=== PATIENT | female | born 1980 | race Caucasian/White ===

== ENCOUNTER 2022-08-03 11:38 | Oncology outpatient (recurring) (ONCR) | payer BC, SELFPAY ==
--- NOTE | 2022-07-26 15:12 | N.ONRAD NP_ITS ---
Radiation Oncology Consultation Patient Name: Jake Amos Date of : 1980 Date of Service: 07/26/2022 Attending Physician: Morales Linda M.D. Jake Amos was seen in consultation this afternoon at the request of Luis Beth M.D. for consideration of adjuvant breast radiotherapy in the management of a recently diagnosed breast cancer. A screening mammogram (independently reviewed in [facility]) obtained on April 14, 2022 identified an 8 mm asymmetry within the left breast at the 12 o'clock position. The left diagnostic mammogram with tomosynthesis completed on May 19, 2022 confirmed a persistent mass in the left breast at the 12 o'clock position. Ultrasonography demonstrated a hypoechoic mass measuring 2.1 cm x 1 cm x 1.4 cm at the 12 o'clock position that was 8 cm from the nipple. There were no abnormal left axillary lymph nodes. An ultrasound-guided left breast needle biopsy completed on May 27, 2022 diagnosed an invasive grade I ductal carcinoma. The Breast Cancer Prognostic Profile reported estrogen receptor positivity (95%), progesterone receptor positivity (75%) and HER2 negativity (1+). Ki???67 was less than 10 %. A MammaPrint Breast Cancer Recurrence Assay reported low-risk and luminal-type. An MRI of the breasts obtained on June 02, 2022 described a biopsy-proven malignancy in the left breast measuring 1.2 cm x 0.8 cm x 1.1 cm and an additional 2 mm ovoid focus of enhancement that was 1.3 cm anterior to the biopsied mass. A needle-localized left breast lumpectomy with sentinel lymph node biopsy and BioZorb placement was performed on June 28, 2022 by Luis Beth M.D. at [facility] in [place], [place]. The pathology report (from the outside hospital and personally reviewed in [facility]) reported a 9 mm grade 1 invasive ductal carcinoma with tubular features. All surgical margins were negative for malignancy. A total of 1 sentinel lymph node was harvested without metastasis noted. The patient was evaluated for adjuvant left breast radiotherapy. I discussed The [place] [employer] on Cancer Staging for breast cancer and specifically the patient's pathological stage IA (T1bN0) corresponding to her disease and The National Comprehensive Cancer Network Guidelines recommending adjuvant radiotherapy. I also reviewed the classic study by NSABP comparing mastectomy, lumpectomy, and lumpectomy with radiotherapy and the Early Breast Cancer Trialist Collaborative Group meta-analysis. She is aware that the addition of radiotherapy to lumpectomy provides improvement in local control and overall survival. I anticipate a 3 week course of hypofractionated radiotherapy preliminarily to a surgical bed boost as per DAVID Guidelines. A computed tomographic radiotherapy planning scan in the treatment position will be acquired to identify the clinical target volumes. The potential toxicities of breast radiotherapy were reviewed. The patient has verbalized understanding would like to proceed as recommended. The patient's medical treatment plan was discussed with Luis Beth M.D. Signed by: Morales Linda 07/26/2022 3:10:11 PM
--- NOTE | 2022-08-03 | CT_ITS ---
Radiation Therapy Planning CT images; total exam DLP: 545.28 mGy-cm MTDD
== END 2022-08-06 23:59 | disposition home or self-care (01) ==
PROVIDERS: PCP Nurse Practitioner Family; Visit Provider Radiology Radiation Oncology
DX: C50.812 Malignant neoplasm of overlapping sites of left female breast (principal); Z17.0 Estrogen receptor positive status [ER+]; Z51.0 Encounter for antineoplastic radiation therapy
CPT/HCPCS: 77280; 77295; 77300; 77332; 77334; 99205

== ENCOUNTER 2022-09-03 08:37 | Oncology outpatient (recurring) (ONCR) | payer BC, SELFPAY ==
--- NOTE | 2022-08-10 14:09 | ONCRAD TMN_ITS ---
Radiation Oncology Treatment Management Note Patient Name: Jake Amos Date of : 1980 Date of Service: 08/10/2022 Attending Physician: Morales Linda M.D. Jake Amos is a 42 year- old white female diagnosed with a pathological stage IA (T1bN0) breast cancer. A screening mammogram obtained on April 14, 2022 identified an 8 mm asymmetry within the left breast at the 12 o'clock position. The left diagnostic mammogram with tomosynthesis completed on May 19, 2022 confirmed a persistent mass in the left breast at the 12 o'clock position. Ultrasonography demonstrated a hypoechoic mass measuring 2.1 cm x 1 cm x 1.4 cm at the 12 o'clock position that was 8 cm from the nipple. There were no abnormal left axillary lymph nodes. An ultrasound-guided left breast needle biopsy completed on May 27, 2022 diagnosed an invasive grade I ductal carcinoma. The Breast Cancer Prognostic Profile reported estrogen receptor positivity (95%), progesterone receptor positivity (75%) and HER2 negativity (1+). Ki???67 was less than 10 %. A MammaPrint Breast Cancer Recurrence Assay reported low-risk and luminal-type. An MRI of the breasts obtained on June 02, 2022 described a biopsy-proven malignancy in the left breast measuring 1.2 cm x 0.8 cm x 1.1 cm and an additional 2 mm ovoid focus of enhancement that was 1.3 cm anterior to the biopsied mass. A needle-localized left breast lumpectomy with sentinel lymph node biopsy and BioZorb placement was performed on June 28, 2022 by Luis Beth M.D. at [facility] in [place], [place]. The pathology report reported a 9 mm grade 1 invasive ductal carcinoma with tubular features. All surgical margins were negative for malignancy. A total of 1 sentinel lymph node was harvested without metastasis noted. She has received 5.3 Gy of a prescribed 40 Gy delivered in the prone disposition with a 3D conformal radiotherapy plan utilizing opposed tangential portal maciel with a [id number]-[id number] treatment technique. An additional 10 Gy in 5 fractions will be administered to the surgical bed at the conclusion of the whole breast treatment in accordance to DAVID Guidelines. Upon review of systems, she denied any breast complaints to radiotherapy. On physical examination, the patient weighed 140 lbs. Her temperature was 97.3 ???F and the blood pressure was 109/70 mmHg. Her pulse was 75 bpm and the respiratory rate was 16. There was no erythema within the treatment maciel of the left breast. Continue left breast radiotherapy as prescribed. Signed by: Morales Linda 08/10/2022 2:07:59 PM
--- NOTE | 2022-08-16 09:19 | ONCRAD TMN_ITS ---
Radiation Oncology Treatment Management Note Patient Name: Jake Amos Date of : 1980 Date of Service: 08/16/2022 Attending Physician: Morales Linda M.D. Jake Amos is a 42 year- old white female diagnosed with a pathological stage IA (T1bN0) breast cancer. A screening mammogram obtained on April 14, 2022 identified an 8 mm asymmetry within the left breast at the 12 o'clock position. The left diagnostic mammogram with tomosynthesis completed on May 19, 2022 confirmed a persistent mass in the left breast at the 12 o'clock position. Ultrasonography demonstrated a hypoechoic mass measuring 2.1 cm x 1 cm x 1.4 cm at the 12 o'clock position that was 8 cm from the nipple. There were no abnormal left axillary lymph nodes. An ultrasound-guided left breast needle biopsy completed on May 27, 2022 diagnosed an invasive grade I ductal carcinoma. The Breast Cancer Prognostic Profile reported estrogen receptor positivity (95%), progesterone receptor positivity (75%) and HER2 negativity (1+). Ki???67 was less than 10 %. A MammaPrint Breast Cancer Recurrence Assay reported low-risk and luminal-type. An MRI of the breasts obtained on June 02, 2022 described a biopsy-proven malignancy in the left breast measuring 1.2 cm x 0.8 cm x 1.1 cm and an additional 2 mm ovoid focus of enhancement that was 1.3 cm anterior to the biopsied mass. A needle-localized left breast lumpectomy with sentinel lymph node biopsy and BioZorb placement was performed on June 28, 2022 by Luis Beth M.D. at [facility] in [place], [place]. The pathology report reported a 9 mm grade 1 invasive ductal carcinoma with tubular features. All surgical margins were negative for malignancy. A total of 1 sentinel lymph node was harvested without metastasis noted. She has received 16 Gy of a prescribed 40 Gy delivered in the prone disposition with a 3D conformal radiotherapy plan utilizing opposed tangential portal maciel with a [id number]-[id number]-[id number] treatment technique. An additional 10 Gy in 5 fractions will be administered to the surgical bed at the conclusion of the whole breast treatment in accordance to DAVID Guidelines. Upon review of systems, she described sensitivity of the left areola. On physical examination, the patient weighed 138 lbs. Her temperature was 97.2 ???F and the blood pressure was 101/58 mmHg. Her pulse was 74 bpm and the respiratory rate was 16. There was no erythema within the treatment maciel of the left breast. Continue left breast radiotherapy as planned. Signed by: Morales Linda 08/16/2022 9:17:34 AM
--- NOTE | 2022-08-23 09:04 | ONCRAD TMN_ITS ---
Radiation Oncology Treatment Management Note Patient Name: Jake Amos Date of : 1980 Date of Service: 08/23/2022 Attending Physician: Morales Linda M.D. Jake Amos is a 42 year- old white female diagnosed with a pathological stage IA (T1bN0) breast cancer. A screening mammogram obtained on April 14, 2022 identified an 8 mm asymmetry within the left breast at the 12 o'clock position. The left diagnostic mammogram with tomosynthesis completed on May 19, 2022 confirmed a persistent mass in the left breast at the 12 o'clock position. Ultrasonography demonstrated a hypoechoic mass measuring 2.1 cm x 1 cm x 1.4 cm at the 12 o'clock position that was 8 cm from the nipple. There were no abnormal left axillary lymph nodes. An ultrasound-guided left breast needle biopsy completed on May 27, 2022 diagnosed an invasive grade I ductal carcinoma. The Breast Cancer Prognostic Profile reported estrogen receptor positivity (95%), progesterone receptor positivity (75%) and HER2 negativity (1+). Ki???67 was less than 10 %. A MammaPrint Breast Cancer Recurrence Assay reported low-risk and luminal-type. An MRI of the breasts obtained on June 02, 2022 described a biopsy-proven malignancy in the left breast measuring 1.2 cm x 0.8 cm x 1.1 cm and an additional 2 mm ovoid focus of enhancement that was 1.3 cm anterior to the biopsied mass. A needle-localized left breast lumpectomy with sentinel lymph node biopsy and BioZorb placement was performed on June 28, 2022 by Luis Beth M.D. at [facility] in [place], [place]. The pathology report reported a 9 mm grade 1 invasive ductal carcinoma with tubular features. All surgical margins were negative for malignancy. A total of 1 sentinel lymph node was harvested without metastasis noted. She has received 29.3 Gy of a prescribed 40 Gy delivered in the prone disposition with a 3D conformal radiotherapy plan utilizing opposed tangential portal maciel with a zsmby-mw-joani treatment technique. An additional 10 Gy in 5 fractions will be administered to the surgical bed at the conclusion of the whole breast treatment in accordance to DAVID Guidelines. Upon review of systems, she did not report any new complaints. On physical examination, the patient weighed 137 lbs. Her temperature was 97.5 ???F and the blood pressure was 109/68 mmHg. Her pulse was 81 bpm and the respiratory rate was 16. There was no minimal erythema within the treatment maciel of the left breast. Continue left breast radiotherapy as prescribed. Signed by: Morales Linda 08/23/2022 9:02:57 AM
--- NOTE | 2022-08-30 09:41 | ONCRAD TMN_ITS ---
Radiation Oncology Treatment Management Note Patient Name: Jake Amos Date of : 1980 Date of Service: 08/30/2022 Attending Physician: Morales Linda M.D. Jake Amos is a 42 year- old white female diagnosed with a pathological stage IA (T1bN0) breast cancer. A screening mammogram obtained on April 14, 2022 identified an 8 mm asymmetry within the left breast at the 12 o'clock position. The left diagnostic mammogram with tomosynthesis completed on May 19, 2022 confirmed a persistent mass in the left breast at the 12 o'clock position. Ultrasonography demonstrated a hypoechoic mass measuring 2.1 cm x 1 cm x 1.4 cm at the 12 o'clock position that was 8 cm from the nipple. There were no abnormal left axillary lymph nodes. An ultrasound-guided left breast needle biopsy completed on May 27, 2022 diagnosed an invasive grade I ductal carcinoma. The Breast Cancer Prognostic Profile reported estrogen receptor positivity (95%), progesterone receptor positivity (75%) and HER2 negativity (1+). Ki???67 was less than 10 %. A MammaPrint Breast Cancer Recurrence Assay reported low-risk and luminal-type. An MRI of the breasts obtained on June 02, 2022 described a biopsy-proven malignancy in the left breast measuring 1.2 cm x 0.8 cm x 1.1 cm and an additional 2 mm ovoid focus of enhancement that was 1.3 cm anterior to the biopsied mass. A needle-localized left breast lumpectomy with sentinel lymph node biopsy and BioZorb placement was performed on June 28, 2022 by Luis Beth M.D. at [facility] in [place], [place]. The pathology report reported a 9 mm grade 1 invasive ductal carcinoma with tubular features. All surgical margins were negative for malignancy. A total of 1 sentinel lymph node was harvested without metastasis noted. She has received 42 Gy of a prescribed 50 Gy delivered in the prone disposition with a 3D conformal radiotherapy plan utilizing opposed tangential portal maciel with a [id number]-[id number] treatment technique. Upon review of systems, she did not report any new breast complaints. On physical examination, the patient weighed 137 lbs. Her temperature was 97.5 ???F and the blood pressure was 113/73 mmHg. Her pulse was 71 bpm and the respiratory rate was 16. There was a grade I erythema within the treatment maciel of the left breast. Continue left breast radiotherapy as planned. Signed by: Morales Linda 08/30/2022 9:39:58 AM
--- NOTE | 2022-09-03 08:42 | N.ONRD TS_ITS ---
Radiation OncologyTreatment Summary Patient Name: Jake Amos Date of : 1980 Date of Service: 09/03/2022 Attending Physician: Morales Linda M.D. Jake Amos has completed adjuvant breast radiotherapy for the management of a pathological stage IA (T1bN0) breast cancer. A screening mammogram obtained on April 14, 2022 identified an 8 mm asymmetry within the left breast at the 12 o'clock position. The left diagnostic mammogram with tomosynthesis completed on May 19, 2022 confirmed a persistent mass in the left breast at the 12 o'clock position. Ultrasonography demonstrated a hypoechoic mass measuring 2.1 cm x 1 cm x 1.4 cm at the 12 o'clock position that was 8 cm from the nipple. There were no abnormal left axillary lymph nodes. An ultrasound-guided left breast needle biopsy completed on May 27, 2022 diagnosed an invasive grade I ductal carcinoma. The Breast Cancer Prognostic Profile reported estrogen receptor positivity (95%), progesterone receptor positivity (75%) and HER2 negativity (1+). Ki???67 was less than 10 %. A MammaPrint Breast Cancer Recurrence Assay reported low-risk and luminal-type. An MRI of the breasts obtained on June 02, 2022 described a biopsy-proven malignancy in the left breast measuring 1.2 cm x 0.8 cm x 1.1 cm and an additional 2 mm ovoid focus of enhancement that was 1.3 cm anterior to the biopsied mass. A needle-localized left breast lumpectomy with sentinel lymph node biopsy and BioZorb placement was performed on June 28, 2022 by Luis Beth M.D. at [facility] in [place], [place]. The pathology report reported a 9 mm grade 1 invasive ductal carcinoma with tubular features. All surgical margins were negative for malignancy. A total of 1 sentinel lymph node was harvested without metastasis noted. Daily radiotherapy was administered between the dates of August 09, 2022 through September 03, 2022. A prescribed dose of 50 Gy was delivered in 20 fractions encompassing 26 elapsed days. The left breast was treated in the prone position with a 3-dimensional conformal radiotherapy plan applying an opposed tangential portal field design utilizing a smdig-sk-bemes treatment technique. The medial tangential field utilized a 125??? gantry angle with a collimator angle of 13.5???. The field size measured 7 cm x 7 cm within the X-direction and 7 cm x 9.7 cm within the Y-direction. The SSD measured 95.6 cm with the field delivering 111 monitor units. An energy of 6 MV was prescribed. A supplemental medial tangential port with multi-leaf collimation was designed that administered 16 monitor units. The lateral tangential field employed a gantry angle of 306??? with a collimator angle of 347???. The field size measured 6.8 cm x 6.7 cm within X-direction and 7.7 cm x 10.4 cm within the Y-direction. The measured SSD was 94.8 cm with the field allocating 140 monitor units. A photon energy of 15 MV was prescribed. An auxiliary lateral tangential port with MLC was designed that apportioned 12 monitor units. The initial maciel commenced on August 09, 2021 and continued through August 27, 2021. A prescribed dose of 40 Gy was delivered in 15 fractions over 19 elapsed days. The surgical bed was then treated with three ports. The medial tangential port utilized a gantry angle 125??? with an associated collimator angle of 0???. The field size measured 4.5 cm x 4.4 cm within the X-direction and 4.2 cm x 4.2 cm within the Y-direction. The measured SSD was 96 cm with the port delivering 71 monitor units. A photon energy of 6 MV was prescribed. The lateral tangential port employed a gantry angle of 290??? with an associated collimator angle of 0???. The port size measured 4.5 cm x 4.5 cm within the X-direction and 4.2 cm x 4.2 cm within the Y-direction. The SSD measured was 95.2 cm with the port allocating 73 monitor units. Low energy photons were delivered. An additional field was incorporated with a 290??? gantry angle and a collimator angle of 0???. The field size spanned 5 cm x 4.7 cm within the X-direction and 4.2 cm x 4.2 cm within the Y-direction. The SSD was 96.7 cm with the field distributing 69 monitor units. An energy of 6 MV was specified. The reduced ports began on August 30, 2022 and concluded September 03, 2022. An additional 10 Gy was allocated in 5 fractions over 5 elapsed days. All treatments were performed with the Breezeplay linear accelerator and an isocentric technique. The dose was calculated by Anisotropic Analytic Algorithm. The plan was normalized to deliver 95% of the prescription dose to 95% of the planning target volume. Signed by: Morales Linda 09/03/2022 8:41:44 AM
== END 2022-09-03 12:03 | disposition home or self-care (01) ==
PROVIDERS: PCP Nurse Practitioner Family; Visit Provider Radiology Radiation Oncology
DX: C50.812 Malignant neoplasm of overlapping sites of left female breast; Z17.0 Estrogen receptor positive status [ER+]; Z79.899 Other long term (current) drug therapy
CPT/HCPCS: 77307; 77334; 77336; 77387; 77412; 99213

== ENCOUNTER 2022-09-30 13:54 | Oncology outpatient (recurring) (ONCR) | payer BC, SELFPAY ==
--- NOTE | 2022-09-30 14:49 | ONCRAD EPV_ITS ---
Radiation Oncology Established Patient Visit Patient: Dandre Joseph [id number] : 1980> Age: 42> Sex: Female> Dictated by: Kendell Kelley Date of Service: 09/30/2022 Referring Physician(s) : Diagnosis: C50.412 - Malignant neoplasm of upper-outer quadrant of left female breast, Diagnosed 05/27/2022 (Active) Stage IA, T1b, pN0, M0, G1, HER2 Neg, ER Pos, MS Pos Radiotherapy to Date: Course: Breast 2022, Treatment Site: Breast - Phase II, Ref. ID: [id number], , Energy: 6X, Dose/Fx (cGy): 200, #Fx: 5 / 5, Dose Correction (cGy): 0, Total Dose (cGy): 1,000, Start Date: ,, End Date: 09/03/2022, Elapsed Days: 4 Treatment Site: Breast Ca ??? Lt, Ref. ID: [id number], Energy: 15X/6X, Dose/Fx (cGy): 266.7, #Fx: 15 / 15, Dose Correction (cGy): 0, Total Dose (cGy): 4,000, Start Date: 08/09/2022, End Date: 08/27/2022, Elapsed , days: 18 Current History: Doing well. Peeling of left breast resolved. Post-op palpable Bio-sorb felt in lateral left breast. Tolerating tamoxifen with no toxicity. She has med onc FU at [facility] in [place]. Current Medications: Allergies: No Known Allergies Current Complaints / Review of Systems: . Vital Signs: Performed on 09/30/2022 2:14 PM BMI - 22.798 kg/m2, Height - 65 in, Weight - 137 lbs, Temperature - 97.2 f, Pulse - 80 /min, Respiration - 18 /min, O2 Sat - 99 %, Pain - 0, Fatigue - 0 and BP - 110/ 77 mm(hg). Physical Exam: General: Alert and oriented x 3. No acute distress. No adenopathy Tanning of left breast with erythema of areola, Palpable post op mass in lateral left breast (Bio-sorb). Arms full range of motion. Performance Status: ECOG 0 Lab: None pending. Pathology: Primary, c50.412 - malignant neoplasm of upper-outer quadrant of left female breast, Diagnosed 05/27/2022 (active) stage ia, t1b, pn0, m0, g1, her2 neg, er pos, pr p. Imaging: See HPI Impression: St I adenocarcinoma of left breast. Doing well post-op. Palpable mass is a Bio-sorb. She should contact surgeon to get some idea of how long it may be palpable. Follow-up with med onc at [facility]. FU here PRN. Signed by: 09/30/2022 2:48:06 PM <<Signature on File>> Time spent with patient: CPT Code: CPT Code:
== END 2022-10-06 23:59 | disposition home or self-care (01) ==
LOC: ONCMED 13:54
PROVIDERS: PCP Nurse Practitioner Family; Visit Provider Radiology Radiation Oncology
DX: Z53.9 Procedure and treatment not carried out, unspecified reason (principal)